=== PATIENT | female | born 1975 | race Caucasian/White ===

== ENCOUNTER 2016-10-13 11:57 | Emergency (ER) | payer OTHER ==
[2016-10-13] MEDS ORDERED: TORADOL IM ONE ×2 (15:43→15:53)
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
[2016-10-13 20:59] VITALS: BP 170/88
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
== END 2016-10-13 21:48 | disposition home or self-care (01) ==
LOC: ED 11:57
DX: R51 Headache (principal); M54.5 Low back pain; I10 Essential (primary) hypertension; Z87.891 Personal history of nicotine dependence; Z91.012 Allergy to eggs; Z91.040 Latex allergy status; Z91.011 Allergy to milk products; V49.59XA Passenger injured in collision with other motor vehicles in traffic accident, initial encounter; Y93.89 Activity, other specified; Y99.9 Unspecified external cause status; Y92.410 Unspecified street and highway as the place of occurrence of the external cause
CPT/HCPCS: 70450; 72100; 72125; 96372; 99284; J1885